=== PATIENT | female | born 1955 | race Caucasian/White ===

== ENCOUNTER → 2017-12-29 13:03 | Outpatient (CLI) | payer OTHER, SELFPAY ==
[2017-12-29 14:37] LABS: INR 2.7 (0.9-1.3); Prothrombin Time 28.6 SECONDS (10.1-12.7)
== END ==
PROVIDERS: Visit Provider Family Medicine
DX: I82.421 Acute embolism and thrombosis of right iliac vein (principal)
CPT/HCPCS: 36415; 85610

== ENCOUNTER → 2018-01-25 11:56 | Outpatient (CLI) | payer OTHER, SELFPAY ==
[2018-01-25 12:37] LABS: INR 3.7 (0.9-1.3); Prothrombin Time 39.7 SECONDS (10.1-12.7)
== END ==
PROVIDERS: PCP Family Medicine; Visit Provider Family Medicine
DX: I82.421 Acute embolism and thrombosis of right iliac vein (principal)
CPT/HCPCS: 36415; 85610

== ENCOUNTER → 2018-01-29 14:01 | Outpatient (CLI) | payer OTHER, SELFPAY ==
--- NOTE | 2018-01-29 14:05 | DI.MG.S_ITS ---
BILATERAL DIGITAL SCREENING MAMMOGRAM 3D/2D WITH CAD: 01/29/2018 CLINICAL: Routine screening. Family history of breast cancer. Comparison is made to exams dated: 12/08/2015 mammogram, 12/02/2015 mammogram, and 07/22/2014 mammogram - Loc[facility]. The tissue of both breasts is heterogeneously dense. This may lower the sensitivity of mammography. Current study was also evaluated with a Computer Aided Detection (CAD) system. There is a 0.6 cm oval equal density asymmetry with an indistinct margin in the left breast anterior depth medial region seen on the craniocaudal view only. There also is an oval equal density asymmetry with an indistinct margin in the left breast middle depth central to the nipple seen on the craniocaudal view only. No other significant masses, calcifications, or other findings are seen in either breast. IMPRESSION: INCOMPLETE: NEEDS ADDITIONAL IMAGING EVALUATION The 0.6 cm oval equal density asymmetry in the left breast anterior depth medial region seen on the craniocaudal view only is indeterminate. Mediolateral and spot compression views as well as additional views with possible ultrasound are recommended. The oval equal density asymmetry in the left breast middle depth central to the nipple seen on the craniocaudal view only is indeterminate. Mediolateral and spot compression views as well as additional views with possible ultrasound are recommended. This exam was interpreted at Station ID: [id number]. NOTE: For mammograms, a report in lay terms will be sent to the patient. Approximately 15% of breast malignancies will not be visualized mammographically. In the management of a palpable breast mass, a negative mammogram must not discourage biopsy of a clinically suspicious lesion. Electronically Signed By: David dobbins/roseline:01/29/2018 17:28:03 letter sent: Additional Imaging Needed ACR BI-RADS Category 0: Incomplete [id number]
== END ==
PROVIDERS: PCP Family Medicine; Visit Provider Family Medicine
DX: Z12.31 Encounter for screening mammogram for malignant neoplasm of breast (principal); Z80.3 Family history of malignant neoplasm of breast
CPT/HCPCS: 77063; 77067

== ENCOUNTER → 2018-02-12 08:56 | Outpatient (CLI) | payer OTHER, SELFPAY ==
--- NOTE | 2018-02-12 | DI.US.S_ITS ---
ULTRASOUND OF LEFT BREAST: 02/12/2018 CLINICAL: Patient returns today to evaluate 2 densities in the left breast. Comparison is made to exams dated: 02/12/2018 mammogram, 01/29/2018 mammogram, 12/02/2015 mammogram, and 07/22/2014 mammogram - [facility]. Color flow ultrasound of the left breast was performed. Isaacs scale images of the real-time examination were reviewed. Prior mammographic finding is no longer seen left breast. There is a 1 cm oval mass in the left breast at 12 o'clock middle depth. IMPRESSION: SUSPICIOUS OF MALIGNANCY - FOLLOW-UP RECOMMENDED The 1 cm oval mass in the left breast is suspicious of malignancy. An ultrasound guided biopsy is recommended. Findings and recommendations discussed with the patient by Dr. Randolph at the time of evaluation. This exam was interpreted at Station ID: [id number]. Electronically Signed By: Marc Linton M.D. cj/:02/13/2018 15:54:11 letter sent: Biopsy Required Ultrasound BI-RADS: 4 Suspicious abnormality
--- NOTE | 2018-02-12 | DI.MG.S_ITS ---
UNILATERAL LEFT DIGITAL DIAGNOSTIC MAMMOGRAM 3D/2D: 02/12/2018 CLINICAL: Additional evaluation requested from prior study. Family history of breast cancer. Comparison is made to exams dated: 01/29/2018 mammogram, 12/08/2015 mammogram, and 12/02/2015 mammogram - [facility]. The tissue of the left breast is heterogeneously dense. This may lower the sensitivity of mammography. Prior mammographic finding is no longer seen in the left breast in the lower inner quadrant. This is consistent with overlapping fibroglandular tissue. There is a 9 mm oval equal density mass with a macrolobulated margin in the left breast at 12 o'clock middle depth. No other significant masses or calcifications are seen in the breast. IMPRESSION: INCOMPLETE: NEEDS ADDITIONAL IMAGING EVALUATION The 9 mm oval equal density mass in the left breast is indeterminate. An ultrasound is recommended. This exam was interpreted at Station ID: [id number]. NOTE: For mammograms, a report in lay terms will be sent to the patient. Approximately 15% of breast malignancies will not be visualized mammographically. In the management of a palpable breast mass, a negative mammogram must not discourage biopsy of a clinically suspicious lesion. Electronically Signed By: Marc Linton M.D. cj/:02/12/2018 15:43:36 ACR BI-RADS Category 0: Incomplete 3340F
== END ==
PROVIDERS: PCP Family Medicine; Visit Provider Family Medicine
DX: R92.8 Other abnormal and inconclusive findings on diagnostic imaging of breast (principal); N63.20 Unspecified lump in the left breast, unspecified quadrant
CPT/HCPCS: 76642; 77065; G0279

== ENCOUNTER → 2018-03-05 07:30 | Outpatient (CLI) | payer OTHER, SELFPAY ==
--- NOTE | 2018-03-05 | PATH_ITS ---
[facility] Accession Number: [id number] . 01 Material submitted: . LEFT BREAST MASS 12:00 . 02 Diagnosis: Left Breast Mass, 12 o'clock, Excisional Biopsy: Fibroadenoma, fragmented. Negative for atypical hyperplasia, in situ or invasive carcinoma. V/03/06/2018 . 02 Comment: Sections are of a fibroepithelial lesion, consistent with a fibroadenoma. There is no increased cellularity, nuclear atypia, stromal overgrowth or necrosis. . As part of routine quality auditor, Dr. Reynaga has reviewed this case and agrees with the above diagnosis. . 02 Electronically signed: . Kalen Mendoza MD, PhD, Pathologist NPI- [id number] . 01 Gross description: . Received one formalin-filled container labeled with the patient's name and labeled US breast NDL core biopsy. The specimen is received with a plastic filter, sample loose in container. The specimen consists of four yellow-dunham, 0.2-0.3 cm in diameter portions of tissue which range in length from 0.7 cm to 1.5 cm. The specimen is entirely submitted in one cassette. Collection date: 03/05/2018. Collection time per container: 8:47 AM. Total fixation time: 12 hours, up to 24. ([id number]) /FRR . 02 Pathologist provided ICD-10: D24.2 . 02 CPT . 817502 Performed at: 01 [facility] [address] [address], [place], [place] [id number] MD David Pederson MD Phone: [phone] Performed at: 02 [facility] [address] [place] [id number] MD Joaquim Desir MD Phone: [phone]
--- NOTE | 2018-03-05 | DI.US.S_ITS ---
ULTRASOUND GUIDED BIOPSY LEFT BREAST USING VACUUM DEVICE WITH MARKING DEVICE INSERTED AND POST DIGITAL MAMMOGRAPHIC AND ULTRASOUND IMAGIN03/05/2018 CLINICAL: Left breast mass. Left breast mass. PATIENT CONSENT: Risks (minor bleeding, infection, vasovagal reaction and repeat procedure), benefits and alternatives were explained to the patient and written informed consent was obtained. Correlation is made to exams dated: 02/12/2018 ultrasound, 02/12/2018 mammogram, and 01/29/2018 mammogram - [facility]. An ultrasound guided biopsy using real-time ultrasound was performed for the 9 mm oval solid mass located in the left breast at 12 o'clock middle depth. The skin was prepped in the usual manner. Local anesthetic was administered to the access site. A skin tomasa was made in the breast. The abnormality was approached from the lateral aspect. A 10 gauge biopsy needle was placed adjacent to the abnormality under ultrasound guidance. Once the needle was documented to be in the correct location, four specimens were obtained using the Mammotome biopsy system. The patient received additional local anesthetic during the procedure. A titanium clip was inserted into the biopsy cavity. Post procedure digital mammographic and ultrasound imaging demonstrates the clip at the targeted area and partial removal of the abnormality. The specimens were sent to the laboratory for pathological analysis. IMPRESSION: ULTRASOUND GUIDED BIOPSY BENIGN Ultrasound guided biopsy of the 9 mm solid mass in the left breast at 12 o'clock middle depth was successful. Findings indicate a fibroadenoma which is benign and concordant. Recommend the patient return to annual screening mammography. This exam was interpreted at Station ID: [id number]. Aleksander vidal,cj/:03/07/2018 23:00:38
--- NOTE | 2018-03-05 | DI.MG.S_ITS ---
UNILATERAL LEFT DIGITAL DIAGNOSTIC MAMMOGRAM POST-NEEDLE BIOPSY: 03/05/2018 CLINICAL: Left breast mass. Post clip placement. Comparison is made to exams dated: 02/12/2018 mammogram, 01/29/2018 mammogram, and 12/08/2015 mammogram - [facility]. The tissue of the left breast is heterogeneously dense. This may lower the sensitivity of mammography. There is a marker clip in the appropriate position in the left breast at 12 o'clock middle depth. This marker clip placement is at biopsy site. IMPRESSION: POST PROCEDURE MAMMOGRAM FOR MARKER PLACEMENT There was a successful marker clip placement in the left breast middle depth. This exam was interpreted at Station ID: [id number]. NOTE: For mammograms, a report in lay terms will be sent to the patient. Approximately 15% of breast malignancies will not be visualized mammographically. In the management of a palpable breast mass, a negative mammogram must not discourage biopsy of a clinically suspicious lesion. Electronically Signed By: Aleksander vidal/:03/05/2018 09:25:52 ACR BI-RADS Category Post-procedure mammogram for marker placement
== END ==
PROVIDERS: PCP Family Medicine; Visit Provider Family Medicine
DX: N63.20 Unspecified lump in the left breast, unspecified quadrant (principal)
CPT/HCPCS: 19083; 77065

== ENCOUNTER → 2018-04-02 12:43 | Outpatient (CLI) | payer OTHER, SELFPAY ==
--- NOTE | 2018-04-02 | DI.CT.S_ITS ---
PROCEDURE: CT ABDOMEN PELVIS WO/W CON INDICATIONS: HEMATURIA TECHNIQUE: After the administration of oral contrast, 5 mm thick sections acquired from the diaphragms to the iliac crests. After the administration of intravenous contrast, 5 mm thick sections acquired from the diaphragms to the symphysis. 5 mm thick coronal and sagittal reformats were acquired. For radiation dose reduction, the following was used: automated exposure control, adjustment of mA and/or kV according to patient size. COMPARISON: None. FINDINGS: Image quality: Excellent. ABDOMEN: Lung bases: Lung bases are clear. Heart size is normal. Solid organs: Liver is normal in size and enhancement. Gallbladder is within normal limits.. Biliary system is non-dilated. Pancreas enhances normally. Spleen is normal in size and enhancement. No adrenal nodules. Bilateral kidneys are normal in size. There is no renal stone or hydronephrosis. No perinephric fluid collection. Mild bilateral perinephric fat stranding is seen. 8 x 9 mm well-circumscribed hypodense structure involving anterior cortex of mid pole left kidney is seen and measures -64 Hounsfield units in density likely represent angiomyolipoma. No new enhancing renal lesion is seen. 7 mm right renal cortical cyst is seen. There is normal contrast excretion bilaterally with normal contrast filling of bilateral ureters. No filling defect or external mass compression is seen. Urinary bladder wall is of normal thickness. No discrete bladder wall mass is seen. Bowel and peritoneum: Stomach, small and large bowel loops are normal in caliber and wall thickness. There is a small hiatal hernia. Appendix is visualized and is within normal limits. No free fluid or air. Nodes and vessels: No retroperitoneal or mesenteric adenopathy by size criteria. Aorta and inferior vena are normal in caliber. Miscellaneous: No ventral hernias. PELVIS: Genitourinary: Bladder wall thickness is normal. Uterus and bilateral adnexa show no gross abnormality. Miscellaneous: No inguinal hernias or adenopathy. Bones: No suspicious bony lesions. No vertebral body compression fractures. Degenerative disc disease in lower lumbar spine is seen. IMPRESSION: 1. Very mild and nonspecific bilateral perinephric fat stranding, infection or inflammation cannot be excluded. No discrete enhancing renal lesion. No hydronephrosis. 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 No gross abnormality is seen in the urinary bladder or bilateral ureters. 2. No acute inflammatory process within the abdomen or pelvis. Dictated by: Neil Joyce M.D. on 04/02/2018 at 15:27 Approved by: Neil Joyce M.D. on 04/02/2018 at 15:42
[2018-04-02 14:04] LABS: Alanine Aminotransferase 19 IU/L (9-52); Albumin 3.9 g/dL (3.5-5.0); Albumin Globulin Ratio 1.2 (1.0-2.8); Alkaline Phosphatase 103 U/L (38-126); Aspartate Aminotransferase 17 IU/L (14-36); BUN Creatinine Ratio 18.6 (6-22); Bilirubin Total 0.4 mg/dL (0.2-1.3); Blood Urea Nitrogen 13 mg/dL (7-17); Calcium 9.3 mg/dL (8.4-10.2); Carbon Dioxide 32 mmol/L (22-32); Chloride 103 mmol/L (98-107); Estimated Glomerular Filt Rate > 60.0 mL/min (>60); Globulin 3.2 g/dL (1.7-4.1); Glucose 66 mg/dL (80-110); HEMOLYSIS < 15 (0-50); Sodium 142 mmol/L (137-145); Total Protein 7.1 g/dL (6.3-8.2)
== END ==
PROVIDERS: PCP Family Medicine; Visit Provider Family Medicine
DX: R31.9 Hematuria, unspecified (principal); N28.1 Cyst of kidney, acquired; D17.71 Benign lipomatous neoplasm of kidney
CPT/HCPCS: 36415; 74178; 80053; Q9967

== ENCOUNTER 2018-04-03 14:00 | Outpatient (RCR) | payer OTHER, SELFPAY ==
--- NOTE | 2017-12-28 16:05 | PT.OTN ---
Current Diagnoses Hemiplegia, unspecified affecting right dominant side (12/26/17) Cerebral infarction due to thrombosis of left middle cerebral artery (12/26/17) Cerebral infarction, unspecified (12/26/17) Difficulty in walking, not elsewhere classified (12/26/17) Weakness (12/26/17) Physical Therapy Treatment Note PT-OP-A Visit Information Start: 12/28/17 15:55 Freq: Status: Active Protocol: Document 12/26/17 13:00 [facility] (Rec: 12/28/17 16:05 [facility] [id number]) Out-Patient Physical Therapy Visit Information Visit Information Visit Type Treatment Note Visit Start Time 13:00 Visit Stop Time 13:45 Total Visit Minutes 45 Number of REACTOR OPERATOR Visits 0 PT-OP-C Subjective Start: 12/28/17 15:55 Freq: Status: Active Protocol: Document 12/26/17 13:00 [facility] (Rec: 12/28/17 16:05 [facility] [id number]) OP-PT Subjective Patient Comments Patient Comments Pt has been walking at the bar daily PT-OP-Q Treatments Start: 12/28/17 15:55 Freq: Status: Active Protocol: Document 12/26/17 13:00 [facility] (Rec: 12/28/17 16:05 [facility] [id number]) Gym Equipment Shuttle Balance 2 Details red clips fwd & side WBOS & NBOS 1 Details blue clips WBOS & NBOS while tossing balloon Therapeutic Exercises Standing Exercises 2 Standing Exercise Name sit <>stand Reps/Minutes 10 1 Standing Exercise Name hip ext Side bilateral Gait Training Gait Activity 3 Description fwd/back walking Device Used rail Distance/Duration 2x20 ft 2 Description side steps Device Used rail Distance/Duration 2x20 ft 1 Description Gait Device Used hemiwalker Level of Assistance CGA Surface level Distance/Duration between activities & 100ft Treatment Focus step through gait Neuro Re-Education Treatment Balance Activities 1 Details balance board Comments fwd/back & side to side weight shifts Self-Care/Home Management Treatment Education Other Education edu to use LE to lift itself off w/c footrest and to use LE strength as much as she can. PT-OP-T Assessment and Plan Start: 12/28/17 15:55 Freq: Status: Active Protocol: Document 12/26/17 13:00 [facility] (Rec: 12/28/17 16:05 [facility] [email or web address]) Physical Therapy Assessment Assessment Summary Assessment pt is improving with steadiness in standing. She has difficulty with uneven surfaces d/t RLE weakness, but is improving with step pattern & ability to clear RLE when amb. Physical Therapy Plan Frequency and Duration Frequency of Treatment Every Other Week Plan of Care End Date 02/09/18 Next Visit Focus/Plan Next Visit Plan hurdles
--- NOTE | 2018-01-17 16:02 | PT.OTN ---
Current Diagnoses Hemiplegia, unspecified affecting right dominant side (01/17/18) Cerebral infarction due to thrombosis of left middle cerebral artery (01/17/18) Cerebral infarction, unspecified (01/17/18) Difficulty in walking, not elsewhere classified (01/17/18) Weakness (01/17/18) Physical Therapy Treatment Note PT-OP-A Visit Information Start: 12/28/17 15:55 Freq: Status: Active Protocol: Document 01/17/18 15:15 [facility] (Rec: 01/17/18 16:02 [facility] [id number]) Out-Patient Physical Therapy Visit Information Visit Information Visit Type Treatment Note Visit Start Time 15:15 Visit Stop Time 16:00 Total Visit Minutes 45 Number of HARDWARE ASSEMBLER Visits 0 PT-OP-C Subjective Start: 12/28/17 15:55 Freq: Status: Active Protocol: Document 12/26/17 13:00 [facility] (Rec: 12/28/17 16:05 [facility] [email or web address]) OP-PT Subjective Patient Comments Patient Comments Pt has been walking at the bar daily PT-OP-Q Treatments Start: 12/28/17 15:55 Freq: Status: Active Protocol: Document 01/17/18 15:15 [facility] (Rec: 01/17/18 16:02 [facility] [id number]) Gym Equipment Shuttle Balance 2 Details red clips fwd & side WBOS & NBOS Therapeutic Exercises Standing Exercises 3 Standing Exercise Name marching in place Reps/Minutes 10 1 Standing Exercise Name hip ext Side bilateral Gait Training Gait Activity 3 Description fwd/back walking Device Used rail Distance/Duration 2x20 ft 2 Description side steps Device Used rail Distance/Duration 2x20 ft 1 Description Gait Device Used hemiwalker Level of Assistance CGA Surface level Distance/Duration between activities & 100ft Treatment Focus step through gait Neuro Re-Education Treatment Balance Activities 3 Details marching fwd 2 Details tandem stance trials B 1 Details balance board Comments fwd/back & side to side weight shifts PT-OP-T Assessment and Plan Start: 12/28/17 15:55 Freq: Status: Active Protocol: Document 01/17/18 15:15 [facility] (Rec: 01/17/18 16:02 [facility] [id number]) Physical Therapy Assessment Assessment Summary Assessment Pt cont to have difficulty on uneven surfaces. She occasionally requires min A to catch balance with hemiwalker . Improving static stance. Physical Therapy Plan Frequency and Duration Frequency of Treatment Every Other Week Plan of Care End Date 02/09/18 Next Visit Focus/Plan Next Note Type Progress Note Next Visit Plan Advance balance Please Sign and Return: I have reviewed this Plan of Care and certify that the skilled therapy services above are required to meet the patient?s needs. Physician Signature Date Printed Name and Credentials Clinical Instructor Signature Printed Name and Credentials
--- NOTE | 2018-02-16 15:50 | PT.OTN ---
Current Diagnoses Hemiplegia, unspecified affecting right dominant side (02/16/18) Cerebral infarction due to thrombosis of left middle cerebral artery (02/16/18) Cerebral infarction, unspecified (02/16/18) Difficulty in walking, not elsewhere classified (02/16/18) Weakness (02/16/18) Physical Therapy Treatment Note PT-OP-A Visit Information Start: 12/28/17 15:55 Freq: Status: Active Protocol: Document 02/16/18 15:25 [facility] (Rec: 02/16/18 15:50 [facility] [id number]) Out-Patient Physical Therapy Visit Information Visit Information Visit Type Progress Note Visit Start Time 12:15 Visit Stop Time 13:00 Total Visit Minutes 45 Number of NOVELTY TWISTER OPERATOR Visits 0 PT-OP-C Subjective Start: 12/28/17 15:55 Freq: Status: Active Protocol: Document 02/16/18 15:25 [facility] (Rec: 02/16/18 15:50 [facility] [id number]) OP-PT Subjective Patient Comments Patient Comments Reports noncompliance with chair exercsies. Per her boyfriend, her brother takes her out to the bar a few times a week to walk. PT-OP-Q Treatments Start: 12/28/17 15:55 Freq: Status: Active Protocol: Document 02/16/18 15:25 [facility] (Rec: 02/16/18 15:50 [facility] [id number]) Therapeutic Exercises Sitting Exercises 6 Sitting Exercise Name DF Reps/Minutes 10 5 Sitting Exercise Name knee flex Reps/Minutes 5 4 Sitting Exercise Name march Reps/Minutes 10 3 Sitting Exercise Name LAQ Reps/Minutes 10 Comments available range 2 Sitting Exercise Name hip add Equipment Used pillow Reps/Minutes 15 1 Sitting Exercise Name hip abd Resistance L3 Reps/Minutes 15 Standing Exercises 3 Standing Exercise Name marching in place Reps/Minutes 10 2 Standing Exercise Name sit <>stand Reps/Minutes 6 1 Standing Exercise Name hip abd Side bilateral Gait Training Gait Activity 3 Description fwd/back walking Device Used rail Distance/Duration 2x20 ft 2 Description side steps Device Used rail Distance/Duration 2x20 ft 1 Description Gait Device Used NBQC Level of Assistance CGA Surface level Distance/Duration 200ft Treatment Focus step through gait Neuro Re-Education Treatment Balance Activities 2 Details tandem stance trials B Self-Care/Home Management Treatment Education Other Education edu to use LE to lift itself off w/c footrest and to use LE strength as much as she can; discussed pt walking with family to/from meals & not using her power chair at all times d/t pt geting weaker. Pt educated to do HEP in chair daily & encouraged BF to walk with her more. PT-OP-T Assessment and Plan Start: 12/28/17 15:55 Freq: Status: Active Protocol: Document 02/16/18 15:25 [facility] (Rec: 02/16/18 15:50 [facility] [id number]) Physical Therapy Assessment Goals Two Impairment gait Grinding Machine Operator Goal (LTG) Amb 100ft with hemiwalker or quad cane Indep LTG Duration 04/19/18 One Impairment strength Short Term Goal (STG) indep HEP STG Duration Pt given HEP-noncompliance 03/19 Progress Towards Goals Progress Towards Goals Slow Progress - Other Progress Comments Pt has been noncompliant with seated HEP, but compliant with walking at bar with brother a few times a week. Pt is progressing with balance, but demonstrated dec endurance today with activity, possibly d/t inc use of power chair. Assessment Summary Assessment Pt able to go through HEP with cueing throughout exercsies. Cont need to work on balance. Physical Therapy Plan Frequency and Duration Frequency of Treatment Every Other Week Duration of Treatment 2 months Plan of Care Start Date 02/16/18 Plan of Care End Date 04/19/18 Therapeutic Interventions Therapeutic Interventions Aquatic Therapy Balance Training Gait Training Home Exercise Program Manual Therapy Neuromuscular Re-education Taping Therapeutic Exercises Next Visit Focus/Plan Next Note Type Treatment Note Next Visit Plan Resume advancing balance tasks ; review HEP for compliance
--- NOTE | 2018-02-16 15:50 | PT.OPPOC ---
Current Diagnoses Hemiplegia, unspecified affecting right dominant side (02/16/18) Cerebral infarction due to thrombosis of left middle cerebral artery (02/16/18) Cerebral infarction, unspecified (02/16/18) Difficulty in walking, not elsewhere classified (02/16/18) Weakness (02/16/18) Provider Visit Care Team Role Provider Type Prince Anthony MD Attending Provider Non-Staff Specialty: [facility] Address: [address] [place] [address], [id number] Email: Plan Of Care PT-OP-T Assessment and Plan Start: 12/28/17 15:55 Freq: Status: Active Protocol: Document 02/16/18 15:25 [facility] (Rec: 02/16/18 15:50 [facility] [id number]) Physical Therapy Assessment Goals Two Impairment gait Care Home Goal (LTG) Amb 100ft with hemiwalker or quad cane Indep LTG Duration 04/19/18 One Impairment strength Short Term Goal (STG) indep HEP STG Duration Pt given HEP-noncompliance 03/19 Progress Towards Goals Progress Towards Goals Slow Progress - Other Progress Comments Pt has been noncompliant with seated HEP, but compliant with walking at bar with brother a few times a week. Pt is progressing with balance, but demonstrated dec endurance today with activity, possibly d/t inc use of power chair. Assessment Summary Assessment Pt able to go through HEP with cueing throughout exercsies. Cont need to work on balance. Physical Therapy Plan Frequency and Duration Frequency of Treatment Every Other Week Duration of Treatment 2 months Plan of Care Start Date 02/16/18 Plan of Care End Date 04/19/18 Therapeutic Interventions Therapeutic Interventions Aquatic Therapy Balance Training Gait Training Home Exercise Program Manual Therapy Neuromuscular Re-education Taping Therapeutic Exercises Next Visit Focus/Plan Next Note Type Treatment Note Next Visit Plan Resume advancing balance tasks ; review HEP for compliance Plan of Care Dates Plan of Care Start Date 02/16/18 Plan of Care End Date 04/19/18 Please Sign and Return: I have reviewed this Plan of Care and certify that the skilled therapy services above are required to meet the patient?s needs. Physician Signature Date Printed Name and Credentials Clinical Instructor Signature Printed Name and Credentials
--- NOTE | 2018-04-03 15:44 | PT.OTN ---
Current Diagnoses Hemiplegia, unspecified affecting right dominant side (04/03/18) Cerebral infarction due to thrombosis of left middle cerebral artery (04/03/18) Cerebral infarction, unspecified (04/03/18) Difficulty in walking, not elsewhere classified (04/03/18) Weakness (04/03/18) Physical Therapy Treatment Note PT-OP-A Visit Information Start: 12/28/17 15:55 Freq: Status: Active Protocol: Document 04/03/18 15:40 [facility] (Rec: 04/03/18 15:44 [facility] [id number]) Out-Patient Physical Therapy Visit Information Visit Information Visit Type Treatment Note Visit Note Patient seen for fitting for power wheelchair. Please see documentation in her paper chart. Visit Start Time 14:00 Visit Stop Time 14:37 Total Visit Minutes 37
--- NOTE | 2018-04-12 16:22 | PT.OPDS ---
Current Diagnoses Hemiplegia, unspecified affecting right dominant side (04/03/18) Cerebral infarction due to thrombosis of left middle cerebral artery (04/03/18) Cerebral infarction, unspecified (04/03/18) Difficulty in walking, not elsewhere classified (04/03/18) Weakness (04/03/18) Provider Visit Care Team Role Provider Type Prince Anthony MD Attending Provider Non-Staff Specialty: [facility] Practice Address: [address] [place] [address], [id number] Email: Discharge Summary PT-OP-C Subjective Start: 12/28/17 15:55 Freq: Status: Active Protocol: Document 02/16/18 15:25 [facility] (Rec: 02/16/18 15:50 [facility] [email or web address]) OP-PT Subjective Patient Comments Patient Comments Reports noncompliance with chair exercsies. Per her boyfriend, her brother takes her out to the bar a few times a week to walk. PT-OP-T Assessment and Plan Start: 12/28/17 15:55 Freq: Status: Active Protocol: Document 04/12/18 16:21 [facility] (Rec: 04/12/18 16:22 [facility] [id number]) Physical Therapy Plan Discharge Physical Therapy Discharge Reasons Patient Request Discharge Comments Pt and family are choosing to end PT at this time d/t pt using up insurance authorized visits. Pt has HEP for home and pt and family have been educated with it.
== END 2018-05-25 10:38 ==
LOC: PHYS 14:00
PROVIDERS: Visit Provider Family Medicine
DX: I63.312 Cerebral infarction due to thrombosis of left middle cerebral artery (principal); I63.9 Cerebral infarction, unspecified; G81.91 Hemiplegia, unspecified affecting right dominant side; R26.2 Difficulty in walking, not elsewhere classified; R53.1 Weakness
CPT/HCPCS: 97110; 97112; 97116; 97535; 97542

== ENCOUNTER → 2018-04-09 16:44 | Outpatient (REF) | payer OTHER, SELFPAY ==
[2018-04-09 16:50] LABS: Add Manual Diff / Slide Review NO; Basophils Percent Auto 0.3 % (0-2); Eosinophils Percent Auto 2.2 % (2-4); Hematocrit 35.5 % (36-46); Hemoglobin 11.9 g/dL (12.0-16.0); Lymphocytes Percent Auto 9.3 % (25-40); Mean Corpuscular HGB Conc 33.4 % (30-36); Mean Corpuscular Hemoglobin 31.7 PG (26-34); Mean Corpuscular Volume 94.8 fL (80-100); Monocytes Percent Auto 5.5 % (3-14); Neutrophils Absolute Auto 4700 /uL (3000-5900); Neutrophils Percent Auto 82.7 % (50-75); Platelet Count 274 X10^3/uL (150-400); Red Blood Cell Count 3.75 X10^6/uL (4.0-5.2); Red Cell Distribution Width 13.5 % (11.6-14.8); White Blood Cell Count 5.7 X10^3/uL (4.5-11.0)
[2018-04-09 17:07] LABS: Prothrombin Time 170.1 SECONDS (10.1-12.7)
[2018-04-09 17:21] LABS: INR 14.9 (0.9-1.3)
== END ==
LOC: LAB 16:44
PROVIDERS: PCP Family Medicine; Visit Provider Nurse Practitioner Family
DX: R31.0 Gross hematuria (principal)
CPT/HCPCS: 85025; 85610

== ENCOUNTER 2018-04-09 20:10 | Emergency (ER) | payer OTHER, SELFPAY ==
[2018-04-09 20:24] VITALS: BP 107/84; PULSE 63; RESP 20; TEMP 36.4; O2SAT 95; BMI 29.1
[2018-04-09] MEDS: PHYTONADIONE (VIT K1) 5 MG TABLET PO (20:49)
[2018-04-09 21:45] VITALS: BP 91/51; PULSE 57; RESP 17; O2SAT 97
--- NOTE | 2018-04-09 21:56 | ED_ITS ---
HPI - General Adult <TAY Kowalski - Last Filed: 04/09/18 22:26> General Chief complaint: Urogenital-Female Stated complaint: INR IS HIGH Time Seen by Provider: 04/09/18 20:16 Source: family Mode of arrival: wheelchair Limitations: physical limitation History of Present Illness HPI narrative: A 62-year-old female with prior history of CVA nonsmoker here for complaint of having blood in her urine and having elevated INR. She takes Coumadin secondary to the CVA. She was seen by primary care provider last week due to having bladder urine was treated for urinary tract infection. Today she was still having blood in her urine her INR was checked and resulted as 14.9 no other sources of bleeding. reports that she has had no changes in her diet. is primary historian. She denies any pain Related Data Allergies Allergy/AdvReac Type Severity Reaction Status Date / Time No Known Drug Allergies Allergy Unknown Unverified 11/22/17 12:23 [NO KNOWN DRUG ALLERGIES] Review of Systems <TAY Kowalski - Last Filed: 04/09/18 22:26> Constitutional Denies chills, Denies fatigue, Denies fever(s), Denies lethargy and Denies weakness Eyes Denies change in vision, Denies eye discharge, Denies irritation and Denies loss of vision ENT Ears, Nose, Mouth, and Throat: Denies change in voice, Denies neck pain and Denies sore throat Cardiovascular Denies dyspnea and Denies dyspnea on exertion Respiratory Denies cough, Denies dyspnea, Denies dyspnea on exertion and Denies wheezing Gastrointestinal Gastrointestinal: Denies abdominal pain, Denies change in bowel habits, Denies diarrhea, Denies nausea and Denies vomiting Genitourinary Comments: Blood in urine with elevated INR Musculoskeletal Denies neck pain Integumentary/Breasts Denies pruritus, Denies erythema, Denies rash and Denies wounds Neurologic Denies confusion, Denies loss of vision and Denies weakness Psychiatric Denies anxiety, Denies confusion, Denies depression, Denies homicidal ideation and Denies suicidal ideation Endocrine Denies fatigue and Denies flushing Hematologic/Lymphatic Denies easy bruising Allergic/Immunologic Denies wheezing Exam <TAY Kowalski - Last Filed: 04/09/18 22:26> Initial Vital Signs Initial Vital Signs: Vital Signs Temperature 97.5 F L 04/09/18 20:24 Pulse Rate 63 04/09/18 20:24 Respiratory Rate 20 04/09/18 20:24 Blood Pressure 107/84 H 04/09/18 20:24 Pulse Oximetry 95 04/09/18 20:24 Const General: cooperative and well developed Nutritional Appearance: well nourished Orientation: alert, awake and confused Limitations: physical limitations [facility] Head: normocephalic and atraumatic Mouth: oral mucosae normal, oropharynx normal and moist mucous membranes Teeth and gingiva: dentition normal Eyes Conjunctivae: conjunctivae normal Sclera: sclerae normal Pupils: PERRL EOM: EOM intact bilaterally Resp Effort & Inspection: normal respiratory effort, able to speak in complete sentences, no respiratory distress and no use of accessory muscles Auscultation: clear to auscultation bilaterally, no rales, no rhonchi and no wheezes Cardio Rate: regular rate Rhythm: regular rhythm Heart Sounds: no click, no gallops, no murmurs and no rubs Pulses: normal peripheral pulses GI Inspection: non-distended Palpation: soft, no hepatosplenomegaly, No guarding, No pulsatile mass and No tender Auscultation: normal bowel sounds General: No CVA tenderness Skin General: no rashes or lesions noted, No jaundice and No petechiae Neuro General: alert, awake and no focal motor deficits Extrem General: full ROM, no clubbing, cyanosis or edema, no pedal edema and no calf tenderness <Darwin Osborne DO - Last Filed: 04/10/18 02:23> Initial Vital Signs Initial Vital Signs: Vital Signs Temperature 97.5 F L 04/09/18 20:24 Pulse Rate 63 04/09/18 20:24 Respiratory Rate 20 04/09/18 20:24 Blood Pressure 107/84 H 04/09/18 20:24 Pulse Oximetry 95 04/09/18 20:24 Course <TAY Kowalski - Last Filed: 04/09/18 22:26> Orders Ordered: ED Orders 04/09/18 21:40 Urinalysis and Microscopic Stat 04/09/18 21:50 Complete Blood Count AUTO DIFF Stat Discontinued Medications Phytonadione (Mephyton) 5 mg PO NOW ONE Stop: 04/09/18 20:25 Last Admin: 04/09/18 20:49 Dose: 5 mg Vital Signs - 8 hr 04/09/18 20:24 04/09/18 21:45 04/09/18 22:25 Temperature 97.5 F L Pulse Rate 63 57 L 57 L Respiratory Rate 20 17 16 Blood Pressure 107/84 H Blood Pressure [Left Arm] 91/51 L 98/62 Pulse Oximetry 95 97 95 <Darwin Osborne DO - Last Filed: 04/10/18 02:23> Orders Ordered: ED Orders 04/09/18 21:40 Urinalysis and Microscopic Stat 04/09/18 21:50 Complete Blood Count AUTO DIFF Stat Discontinued Medications Phytonadione (Mephyton) 5 mg PO NOW ONE Stop: 04/09/18 20:25 Last Admin: 04/09/18 20:49 Dose: 5 mg Vital Signs - 8 hr 04/09/18 20:24 04/09/18 21:45 04/09/18 22:25 Temperature 97.5 F L Pulse Rate 63 57 L 57 L Respiratory Rate 20 17 16 Blood Pressure 107/84 H Blood Pressure [Left Arm] 91/51 L 98/62 Pulse Oximetry 95 97 95 Medical Decision Making <TAY Kowalski - Last Filed: 04/09/18 22:26> MDM Narrative Medical decision making narrative: Patient was given p.o. vitamin K in the emergency room. Her H&H earlier this afternoon was 11.9 and 35.5. Repeat H&H was obtained. And was 11.3 and 33.2. Patient is not having any adverse symptoms at this time. H&H was lower however was not significantly lower. Discussed case with who feels the patient is safe to go home. Will have patient follow up with primary care provider tomorrow for recheck of INR or the next day, do not take Coumadin for the next 2 days. For any worsening is problems or bleeding return to the emergency room. Lab Data Result diagrams: 04/09/18 21:50 Lab Results 04/09/18 04/09/18 04/09/18 Range/Units 21:40 21:50 21:50 WBC 5.6 (4.5-11.0) X10^3/uL RBC 3.53 L (4.0-5.2) X10^6/uL Hgb Cancelled 11.3 L Hct Cancelled 33.2 L MCV 93.9 (80-100) fL MCH 31.9 (26-34) PG MCHC 34.0 (30-36) % RDW 13.5 (11.6-14.8) % Plt Count 262 (150-400) X10^3/uL Neut % (Auto) 83.4 H (50-75) % Lymph % (Auto) 9.9 L (25-40) % [place] % (Auto) 5.4 (3-14) % Eos % (Auto) 1.1 L (2-4) % Baso % (Auto) 0.2 (0-2) % Neut # (Auto) 4600 (3147-4507) /uL Urine Color Red Urine Appearance Turbid Urine pH 6.5 (4.5-8.0) Ur Specific [place] 1.020 (1.000-1.035) Urine Protein 3+ H (Negative) Urine Glucose (UA) Trace (Normal) g/dL Urine Ketones Negative (NEGATIVE) Urine Occult Blood 3+ H (Negative) Urine Nitrate Negative (Negative) Urine Bilirubin Negative (NEGATIVE) Urine Urobilinogen 0.2 (0.2) E.U./dL Ur Leukocyte Esterase Negative (NEGATIVE) Urine RBC >100/hpf H (0-5/HPF) Urine WBC 1-5/hpf (0-5/HPF) Ur Squamous Epith Cells 0-1 /hpf Urine Bacteria Occasional (0-1) (None) Ur Culture Indicated? Cult not indicated Micro UA Comment Gross blood <Darwin Osborne, DO - Last Filed: 04/10/18 02:23> Lab Data Lab Results 04/09/18 04/09/18 04/09/18 Range/Units 21:40 21:50 21:50 WBC 5.6 (4.5-11.0) X10^3/uL RBC 3.53 L (4.0-5.2) X10^6/uL Hgb Cancelled 11.3 L Hct Cancelled 33.2 L MCV 93.9 (80-100) fL MCH 31.9 (26-34) PG MCHC 34.0 (30-36) % RDW 13.5 (11.6-14.8) % Plt Count 262 (150-400) X10^3/uL Neut % (Auto) 83.4 H (50-75) % Lymph % (Auto) 9.9 L (25-40) % [place] % (Auto) 5.4 (3-14) % Eos % (Auto) 1.1 L (2-4) % Baso % (Auto) 0.2 (0-2) % Neut # (Auto) 4600 (2932-8376) /uL Urine Color Red Urine Appearance Turbid Urine pH 6.5 (4.5-8.0) Ur Specific [place] 1.020 (1.000-1.035) Urine Protein 3+ H (Negative) Urine Glucose (UA) Trace (Normal) g/dL Urine Ketones Negative (NEGATIVE) Urine Occult Blood 3+ H (Negative) Urine Nitrate Negative (Negative) Urine Bilirubin Negative (NEGATIVE) Urine Urobilinogen 0.2 (0.2) E.U./dL Ur Leukocyte Esterase Negative (NEGATIVE) Urine RBC >100/hpf H (0-5/HPF) Urine WBC 1-5/hpf (0-5/HPF) Ur Squamous Epith Cells 0-1 /hpf Urine Bacteria Occasional (0-1) (None) Ur Culture Indicated? Cult not indicated Micro UA Comment Gross blood Discharge Plan Departure Patient Disposition: Home Clinical Impression: Elevated INR Discharge Date/Time: 04/09/18 22:30 Interventions: ED Discharge Assessment Last Done: 04/09/18 22:29 Instructions: Warfarin Activity Restrictions/Additional Instructions: Her lab values today show mild anemia. Her INR was elevated to 14.9. She was given vitamin K orally in the emergency room to lower her INR. Do not give warfarin for the next couple of days. Follow up with primary care provider tomorrow or the next day for redraw of INR and recheck of her CBC. For any worsening symptoms return to the emergency room. Referrals: Laith White MD [Primary Care Provider] - <Darwin Osborne DO - Last Filed: 04/10/18 02:23> Cosign ED Attending Medature Attestation: I was immediately available in the department for consultation. Documentation has been reviewed. I agree with assessment and plan.
[2018-04-09 22:04] LABS: Add Manual Diff / Slide Review NO; Basophils Percent Auto 0.2 % (0-2); Eosinophils Percent Auto 1.1 % (2-4); Hematocrit 33.2 % (36-46); Hemoglobin 11.3 g/dL (12.0-16.0); Lymphocytes Percent Auto 9.9 % (25-40); Mean Corpuscular Hemoglobin 31.9 PG (26-34); Mean Corpuscular Volume 93.9 fL (80-100); Monocytes Percent Auto 5.4 % (3-14); Neutrophils Absolute Auto 4600 /uL (3000-5900); Neutrophils Percent Auto 83.4 % (50-75); Platelet Count 262 X10^3/uL (150-400); Red Blood Cell Count 3.53 X10^6/uL (4.0-5.2); Red Cell Distribution Width 13.5 % (11.6-14.8); White Blood Cell Count 5.6 X10^3/uL (4.5-11.0)
[2018-04-09 22:07] LABS: Appearance Urine UA TURBID; Bilirubin Urine UA NEGATIVE (NEGATIVE); Color Urine UA RED; Glucose Urine UA TRACE g/dL (Normal); Ketones Urine UA NEGATIVE (NEGATIVE); Leukocyte Esterase Urine UA NEGATIVE (NEGATIVE); Nitrite Urine UA Negative (Negative); Occult Blood Urine UA 3+ (Negative); Protein Urine UA 3+ (Negative); Urobilinogen Urine UA 0.2 E.U./dL (0.2); pH Urine UA 6.5 (4.5-8.0)
[2018-04-09 22:08] LABS: Bacteria Urine Occasional (0-1); Culture Indicated Urine Cult Not Indicated; RBC Urine >100/HPF (0-5/HPF); Squamous Epithelial Cell Urine 0-1 /HPF; Urine Comments GROSS BLOOD; WBC Urine 1-5/HPF (0-5/HPF)
[2018-04-09 22:25] VITALS: BP 98/62; PULSE 57; RESP 16; O2SAT 95
== END 2018-04-09 22:30 | disposition home or self-care (01) ==
PROVIDERS: Emergency Provider Nurse Practitioner Family; PCP Family Medicine
DX: R79.1 Abnormal coagulation profile (principal)
CPT/HCPCS: 81001; 85025; 85610; 99283

== ENCOUNTER → 2018-04-11 14:37 | Outpatient (REF) | payer OTHER, SELFPAY ==
[2018-04-11 14:50] LABS: INR 2.9 (0.9-1.3); Prothrombin Time 31.8 SECONDS (10.1-12.7)
== END ==
LOC: LAB 14:37
PROVIDERS: PCP Family Medicine; Visit Provider Nurse Practitioner Family
DX: Z79.01 Long term (current) use of anticoagulants (principal)
CPT/HCPCS: 85610

== ENCOUNTER 2018-04-11 23:47 | Emergency (ER) | payer OTHER, SELFPAY ==
--- NOTE | 2018-04-12 00:01 | ED.ABDPAIN ---
HPI - Abdominal Pain General Chief Complaint: Extremity Problem,Nontraumatic Stated Complaint: vomiting right side pain all over Time Seen by Provider: 04/11/18 23:59 Source: family Mode of arrival: wheelchair Limitations: physical limitation History of Present Illness HPI narrative: 62-year-old female with history of cerebrovascular incident and right-sided deficits presents with her in the chief complaint of right-sided pain. She denies any injury or history of the same. She did have 1 episode of vomitingJust prior to arrival. She was seen a few days ago with a chief complaint of elevated INR in the setting of Coumadin and after thorough evaluation was able to go Onset (ago): hour(s) Pain Consistency: constant Location: RUQ and RLQ Severity: moderate Severity scale (1-10): 6 Quality: stabbing Radiation: RUQ and RLQ Exacerbating factors: nothing Associated symptoms: nausea and vomiting Related Data Previous Rx's Medication Instructions Recorded hydrocodone-acetaminophen 1 tab PO Q4-6H PRN #14 tab 04/12/18 ondansetron [Zofran ODT] 4 mg PO Q6H PRN #14 tab 04/12/18 Allergies Allergy/AdvReac Type Severity Reaction Status Date / Time No Known Drug Allergies Allergy Unknown Unverified 11/22/17 12:23 [NO KNOWN DRUG ALLERGIES] Review of Systems Review of Systems All systems reviewed & are unremarkable except as noted in HPI and below and unobtainable due to mental condition Constitutional Denies chills, Denies fever(s), Denies lethargy and Denies weakness Eyes Denies change in vision, Denies eye discharge, Denies irritation and Denies loss of vision ENT Ears, Nose, Mouth, and Throat: Denies change in voice, Denies neck pain and Denies sore throat Cardiovascular Denies chest pain, Denies irregular heart rhythm, Denies lightheadedness, Denies palpitations, Denies dyspnea, Denies dyspnea on exertion and Denies orthopnea Respiratory Denies cough, Denies dyspnea, Denies dyspnea on exertion and Denies wheezing Gastrointestinal Gastrointestinal: Denies abdominal pain, Denies change in bowel habits, Denies diarrhea, Denies nausea and Denies vomiting Genitourinary Denies hematuria, Denies flank pain, Denies urinary incontinence and Denies urinary urgency Musculoskeletal Denies neck pain Integumentary/Breasts Denies pruritus, Denies erythema, Denies rash and Denies wounds Neurologic Denies confusion, Denies loss of vision and Denies weakness Psychiatric Denies anxiety, Denies confusion, Denies depression, Denies homicidal ideation and Denies suicidal ideation Endocrine Denies palpitations Hematologic/Lymphatic Denies easy bruising Allergic/Immunologic Denies wheezing [facility] Social History Smoking Status: Never smoker Exam Narrative Exam Narrative: 62-year-old stroke patient with obvious right-sided deficit Initial Vital Signs Initial Vital Signs: Vital Signs Pulse Rate 48 L 04/12/18 00:03 Respiratory Rate 18 04/12/18 00:03 Blood Pressure 164/83 H 04/12/18 00:03 Pulse Oximetry 97 04/12/18 00:03 Const General: cooperative Nutritional Appearance: well nourished Orientation: alert and awake Eyes General: appearance normal, both eyes and all related structures Eyelids: eyelids normal Conjunctivae: conjunctivae normal Sclera: sclerae normal Pupils: PERRL EOM: EOM intact bilaterally Neck Neck: normal visual inspection, trachea midline, No lymphadenopathy, No midline deformity and No JVD Lymphatic: No lymphedema Resp Effort & Inspection: normal respiratory effort, able to speak in complete sentences, no respiratory distress and no use of accessory muscles Auscultation: clear to auscultation bilaterally, no rales, no rhonchi and no wheezes GI Inspection: non-distended Palpation: soft, no hepatosplenomegaly, No guarding, No pulsatile mass and No tender Auscultation: normal bowel sounds Skin General: no rashes or lesions noted, No jaundice and No petechiae Neuro General: awake Cognition: normal cognition Course Orders Ordered: ED Orders 04/12/18 00:10 Basic Metabolic Panel Stat Complete Blood Count AUTO DIFF Stat Prothrombin Time INR Stat 04/12/18 00:14 CT head/brain wo con Stat 04/12/18 01:41 XR acute abdomen series Stat Discontinued Medications Hydrocodone Bitart/Acetaminophen (Vicodin Prepack) 1 bottle MISC SEEINSTR ONE Stop: 04/12/18 02:40 Last Admin: 04/12/18 03:03 Dose: 1 bottle Hydromorphone HCl (Dilaudid) 1 mg IV NOW ONE Stop: 04/12/18 01:35 Last Admin: 04/12/18 01:35 Dose: 1 mg Ondansetron HCl (Zofran) 4 mg IV NOW ONE Stop: 04/12/18 02:14 Last Admin: 04/12/18 02:15 Dose: 4 mg Ondansetron HCl (Zofran Odt Prepack) 1 bottle MISC SEEINSTR ONE Stop: 04/12/18 02:40 Last Admin: 04/12/18 03:03 Dose: 1 bottle Vital Signs - 8 hr 04/12/18 00:03 04/12/18 01:02 04/12/18 01:30 Pulse Rate 48 L 51 L 47 L Respiratory Rate 18 20 Blood Pressure 164/83 H Blood Pressure [Left Arm] 179/85 H 175/83 H Pulse Oximetry 97 100 98 04/12/18 02:21 Pulse Rate 54 L Respiratory Rate 16 Blood Pressure Blood Pressure [Left Arm] 169/81 H Pulse Oximetry 99 MDM - Abdominal Pain Medical Records Attestation: I reviewed the patient's medical records. Lab Data Attestation: I reviewed the patient's lab results. Result diagrams: 04/12/18 00:10 04/12/18 00:10 Lab Results 04/12/18 04/12/18 04/12/18 Range/Units 00:10 00:10 00:10 WBC 6.9 (4.5-11.0) X10^3/uL RBC 3.42 L (4.0-5.2) X10^6/uL Hgb 11.0 L (12.0-16.0) g/dL Hct 32.4 L (36-46) % MCV 94.8 (80-100) fL MCH 32.2 (26-34) PG MCHC 34.0 (30-36) % RDW 13.4 (11.6-14.8) % Plt Count 284 (150-400) X10^3/uL Neut % (Auto) 82.8 H (50-75) % Lymph % (Auto) 8.1 L (25-40) % [place] % (Auto) 8.7 (3-14) % Eos % (Auto) 0.1 L (2-4) % Baso % (Auto) 0.3 (0-2) % Neut # (Auto) 5700 (6409-3066) /uL PT 32.2 H (10.1-12.7) SECONDS INR 2.9 H (0.9-1.3) Sodium 140 (137-145) mmol/L Potassium 4.4 (3.4-5.1) mmol/L Chloride 102 (98-107) mmol/L Carbon Dioxide 27 (22-32) mmol/L BUN 14 (7-17) mg/dL Creatinine 0.90 (0.52-1.04) mg/dL Estimated GFR > 60.0 (>60) mL/min BUN/Creatinine Ratio 15.6 (6-22) Glucose 130 H (80-110) mg/dL Calcium 9.4 (8.4-10.2) mg/dL Point of care testing: Urine Dip Bedside Urine Glucose Negative Bedside Urine Bilirubin - Negative Bedside Urine Ketone - Negative Urine Specific [place] 1.010 Bedside Urine Occult Blood - Negative Bedside Urine pH 8.5 Bedside Urine Protein + 30 Bedside Urine Urobilinogen - Negative Bedside Urine Nitrite - Negative Bedside Urine Leukocytes - Negative Esterase Imaging Data CT scan - head: Radiologist's impression: No intracranial hemorrhage. Large old infarct in the distribution of the left middle cerebral artery which is acutely seen on December 26, 2016 Abdominal x-ray: My impression: NURY Radiologist's impression: [facility] Discharge Plan Departure Patient Disposition: Home Clinical Impression: Pain, Abdominal pain Instructions: DI for Abdominal Pain-Adult Activity Restrictions/Additional Instructions: *You have been diagnosed with [ acute abdominal pain ] *What to do: *Take medications as directed *Follow up with your primary care provider in 2-3 days, call for an appointment. Let them know you were seen in the Emergency Department and that we ask that you be seen in follow up *Return to ER if you should have any new, worsening or concerning symptoms Prescriptions: New hydrocodone-acetaminophen 5-325 mg tablet 1 tab PO Q4-6H PRN (Reason: pain) Qty: 14 RF: 0 ondansetron [Zofran ODT] 4 mg tablet,disintegrating 4 mg PO Q6H PRN (Reason: nausea and vomiting) Qty: 14 RF: 0
[2018-04-12 00:03] VITALS: BP 164/83; PULSE 48; RESP 18; O2SAT 97; BMI 29.1
--- NOTE | 2018-04-12 00:14 | DI.CT.S_ITS ---
PROCEDURE: CT HEAD/BRAIN WO CON INDICATIONS: vomiting, stroke patient, Right sided pain, acting different TECHNIQUE: Noncontrast 4.5 mm thick angled axial sections acquired from the foramen magnum to the vertex, with coronal and sagittal reformats. For radiation dose reduction, the following was used: automated exposure control, adjustment of mA and/or kV according to patient size. COMPARISON: [facility], CT, HEAD WITHOUT CONTRAST, 12/26/2016, 20:08. FINDINGS: Image quality: Excellent. CSF spaces: Basal cisterns are patent. No extra-axial fluid collections. There is ex vacuo dilatation of the left lateral ventricle secondary to adjacent encephalomalacia. Brain: No definite acute intracranial hemorrhage, mass, or mass effect. A large region of encephalomalacia is demonstrated in the left frontal lobe in the middle cerebral artery distribution consistent with a prior infarct. Curvilinear foci of high density within this region likely represent dystrophic calcifications. Elsewhere, the dunham-white matter junction appears grossly preserved. Skull and face: Calvarium and visualized facial bones are intact, without suspicious lesions. Sinuses: Visualized sinuses and mastoids are clear. IMPRESSION: 1. No definite acute intracranial abnormality. 2. Large region of encephalomalacia in the left middle cerebral artery distribution consistent with prior infarct. Associated curvilinear foci of high density likely represent dystrophic calcifications. Dictated by: David Metcalf M.D. on 04/12/2018 at 7:54 Approved by: David Metcalf M.D. on 04/12/2018 at 7:58
[2018-04-12 00:20] LABS: Add Manual Diff / Slide Review NO; Basophils Percent Auto 0.3 % (0-2); Eosinophils Percent Auto 0.1 % (2-4); Hematocrit 32.4 % (36-46); Lymphocytes Percent Auto 8.1 % (25-40); Mean Corpuscular Hemoglobin 32.2 PG (26-34); Mean Corpuscular Volume 94.8 fL (80-100); Monocytes Percent Auto 8.7 % (3-14); Neutrophils Absolute Auto 5700 /uL (3000-5900); Neutrophils Percent Auto 82.8 % (50-75); Platelet Count 284 X10^3/uL (150-400); Red Blood Cell Count 3.42 X10^6/uL (4.0-5.2); Red Cell Distribution Width 13.4 % (11.6-14.8); White Blood Cell Count 6.9 X10^3/uL (4.5-11.0)
[2018-04-12 00:25] LABS: INR 2.9 (0.9-1.3); Prothrombin Time 32.2 SECONDS (10.1-12.7)
--- NOTE | 2018-04-12 00:36 | PC.NURSE ---
patient with a history of CVA with deficits on the right side is brought in by who reports that today she has been complaining of right sided pain. when ask where patient has pain she takes her left hand and draws an imaginary line from her head to her feet and points to the right side. 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 reports that she is at her baseline besides the decrease in appetite. patient can answer yes and no to questions. provider aware.
[2018-04-12 01:00] VITALS: BP 179/85; PULSE 49; RESP 24
[2018-04-12 01:02] VITALS: BP 179/85; PULSE 51; RESP 20; O2SAT 100
[2018-04-12 01:10] LABS: BUN Creatinine Ratio 15.6 (6-22); Blood Urea Nitrogen 14 mg/dL (7-17); Calcium 9.4 mg/dL (8.4-10.2); Carbon Dioxide 27 mmol/L (22-32); Chloride 102 mmol/L (98-107); Estimated Glomerular Filt Rate > 60.0 mL/min (>60); Glucose 130 mg/dL (80-110); HEMOLYSIS < 15 (0-50); Potassium 4.4 mmol/L (3.4-5.1); Sodium 140 mmol/L (137-145)
[2018-04-12 01:30] VITALS: BP 175/83; PULSE 47; O2SAT 98
[2018-04-12] MEDS: HYDROMORPHONE 1 MG INJ IV (01:35)
--- NOTE | 2018-04-12 01:41 | DI.RAD.S_ITS ---
PROCEDURE: XR ACUTE ABDOMEN SERIES INDICATIONS: Abdominal pain TECHNIQUE: One view chest and two views of the abdomen were acquired. COMPARISON: [facility], , CHEST 1 VIEW, 12/26/2016, 20:14. FINDINGS: Surgical changes and devices: None. Chest: Lungs are clear save for scattered atelectasis. Heart size is normal. No pleural effusions. No pneumoperitoneum. Abdomen: Bowel gas pattern is normal. No suspicious calcifications. Visualized solid organ contours appear normal. Bones: No suspicious bony lesions. Discogenic change in bilateral hip joint degeneration. IMPRESSION: No evidence of bowel obstruction or free air. Dictated by: Larry Garcia M.D. on 04/12/2018 at 8:10 Approved by: Larry Garcia M.D. on 04/12/2018 at 8:14
[2018-04-12] MEDS: ONDANSETRON 4 MG/2 ML INJ IV (02:15)
[2018-04-12 02:21] VITALS: BP 169/81; PULSE 54; RESP 16; O2SAT 99
[2018-04-12] MEDS: ONDANSETRON 4 MG ODT PREPACK 1 BOTTLE MISC (03:03)
[2018-04-12] MEDS: HYDROCODONE/ACET 5/325 PREPACK 1 BOTTLE MISC (03:03)
[2018-04-12 04:00] VITALS: BP 186/89; PULSE 51; RESP 12; O2SAT 100
== END 2018-04-12 04:00 | disposition home or self-care (01) ==
PROVIDERS: Emergency Provider Emergency Medicine; PCP Family Medicine
DX: R10.9 Unspecified abdominal pain (principal)
CPT/HCPCS: 36591; 70450; 74022; 80048; 81003; 85025; 85610; 96374; 96375; 99283; 99284; J1170; J2405

== ENCOUNTER → 2018-04-19 16:30 | Outpatient (CLI) | payer OTHER, SELFPAY ==
[2018-04-19 17:56] LABS: INR 3.4 (0.9-1.3); Prothrombin Time 37.8 SECONDS (10.1-12.7)
== END ==
PROVIDERS: PCP Family Medicine; Visit Provider Family Medicine
DX: Z86.73 Personal history of transient ischemic attack (TIA), and cerebral infarction without residual deficits (principal)
CPT/HCPCS: 36415; 85610

== ENCOUNTER → 2018-05-24 13:17 | Outpatient (REF) | payer OTHER, SELFPAY ==
[2018-05-24 13:57] LABS: INR 1.8 (0.9-1.3); Prothrombin Time 19.7 SECONDS (10.1-12.7)
== END ==
LOC: LAB 13:17
PROVIDERS: PCP Family Medicine; Visit Provider Nurse Practitioner Family
DX: Z79.01 Long term (current) use of anticoagulants (principal)
CPT/HCPCS: 85610

== ENCOUNTER → 2018-05-31 14:21 | Outpatient (REF) | payer OTHER, SELFPAY ==
[2018-05-31 14:35] LABS: Prothrombin Time 44.2 SECONDS (10.1-12.7)
== END ==
LOC: LAB 14:21
PROVIDERS: PCP Family Medicine; Visit Provider Nurse Practitioner Family
DX: Z79.01 Long term (current) use of anticoagulants (principal)
CPT/HCPCS: 85610

== ENCOUNTER → 2018-10-22 15:30 | Outpatient (REF) | payer OTHER, SELFPAY ==
[2018-10-22 15:50] LABS: INR 2.5 (0.9-1.3); Prothrombin Time 29.6 SECONDS (10.1-12.7)
== END ==
LOC: LAB 15:30
PROVIDERS: PCP Family Medicine; Visit Provider Family Medicine
DX: Z79.01 Long term (current) use of anticoagulants (principal)
CPT/HCPCS: 85610

== ENCOUNTER → 2018-11-22 13:04 | Outpatient (REF) | payer OTHER, SELFPAY ==
[2018-11-22 13:32] LABS: INR 2.7 (0.9-1.3); Prothrombin Time 31.6 SECONDS (10.1-12.7)
== END ==
LOC: LAB 13:04
PROVIDERS: PCP Family Medicine; Visit Provider Family Medicine
DX: Z79.01 Long term (current) use of anticoagulants (principal)
CPT/HCPCS: 85610

== ENCOUNTER → 2018-12-05 14:40 | Outpatient (REF) | payer OTHER, SELFPAY ==
[2018-12-05 14:51] LABS: Prothrombin Time 35.5 SECONDS (10.1-12.7)
== END ==
LOC: LAB 14:40
PROVIDERS: PCP Family Medicine; Visit Provider Family Medicine
DX: Z79.01 Long term (current) use of anticoagulants (principal)
CPT/HCPCS: 85610

== ENCOUNTER → 2019-01-08 15:22 | Outpatient (ROUT) | payer OTHER, SELFPAY ==
[2019-01-08 15:34] LABS: INR 2.9 (0.9-1.3); Prothrombin Time 33.9 SECONDS (10.1-12.7)
== END ==
PROVIDERS: PCP Family Medicine; Visit Provider Family Medicine
DX: Z79.01 Long term (current) use of anticoagulants (principal)
CPT/HCPCS: 85610

== ENCOUNTER → 2019-02-05 14:54 | Outpatient (ROUT) | payer OTHER, SELFPAY ==
[2019-02-05 15:35] LABS: INR 2.6 (0.9-1.3); Prothrombin Time 30.8 SECONDS (10.1-12.7)
== END ==
PROVIDERS: PCP Family Medicine; Visit Provider Family Medicine
DX: Z79.01 Long term (current) use of anticoagulants (principal)
CPT/HCPCS: 85610

== ENCOUNTER → 2019-03-29 12:32 | Day surgery (SDC) | payer OTHER, SELFPAY ==
[2019-03-29 13:29] VITALS: BP 127/73; PULSE 50; RESP 14; TEMP 36.2; O2SAT 97
[2019-03-29] MEDS: SODIUM CHLORIDE 0.9% 1,000 ML 200 ML IV (13:30)
[2019-03-29 14:25] VITALS: BP 144/83; PULSE 48; RESP 20; TEMP 35.8; O2SAT 95
--- NOTE | 2019-03-29 14:47 | SUR.PHASEII ---
Procedure cancelled due to elevated INR. Dr. Viera spoke to pt. VS stable. IV d/c'd. Pt's daughter notified and she assisted patient to dress. Pt c/o inability to straighten her rt arm. Rt arm held at rt angle. Will have Dr. Viera evaluate patient. Juice provided.
--- NOTE | 2019-03-29 15:13 | SUR.PHASEII ---
Dr. Viera evaluated patient and spoke to pt and her daughter. OK for discharge per MD.
--- NOTE | 2019-03-29 15:54 | PM.OP.ENDO ---
Procedure & Clinicians Study performed: Colonoscopy not performed Same procedure as scheduled: No Surgeon: Jenny Viera Procedure Notes Procedure in detail: Preoperative INR 5.4, procedure was abandoned. Warfarin will be held times 48 hours then restarted at the usual dose and INR rechecked in 1 week. Patient to follow up in clinic to discuss next steps. Follow up: weeks (2) Disposition: other (Home)
== END | disposition home or self-care (01) ==
PROVIDERS: Visit Provider Student in an Organized Health Care Education/Training Program
DX: Z12.11 Encounter for screening for malignant neoplasm of colon (principal); Z53.09 Procedure and treatment not carried out because of other contraindication; R79.1 Abnormal coagulation profile; Z79.01 Long term (current) use of anticoagulants

== ENCOUNTER → 2019-04-09 13:50 | Outpatient (ROUT) | payer OTHER, SELFPAY ==
[2019-04-09 14:03] LABS: INR 2.4 (0.9-1.3); Prothrombin Time 28.5 SECONDS (10.1-12.7)
== END ==
PROVIDERS: Visit Provider Student in an Organized Health Care Education/Training Program
DX: Z79.01 Long term (current) use of anticoagulants (principal)
CPT/HCPCS: 85610

== ENCOUNTER → 2019-05-13 14:46 | Outpatient (CLI) | payer OTHER, SELFPAY ==
--- NOTE | 2019-05-13 | DI.MG.S_ITS ---
BILATERAL DIGITAL SCREENING MAMMOGRAM 3D/2D WITH CAD: 05/13/2019 CLINICAL: Routine screening. Family history of breast cancer. Comparison is made to exams dated: 01/29/2018 mammogram, 12/02/2015 mammogram, 04/05/2013 mammogram, and 07/22/2014 mammogram - [facility]. The tissue of both breasts is heterogeneously dense. This may lower the sensitivity of mammography. Current study was also evaluated with a Computer Aided Detection (CAD) system. There is a biopsy clip in the left breast. No significant masses, calcifications, or other findings are seen in either breast. There has been no significant interval change. IMPRESSION: NEGATIVE There is no mammographic evidence of malignancy. A 1 year screening mammogram is recommended. This exam was interpreted at Station ID: [id number]. NOTE: For mammograms, a report in lay terms will be sent to the patient. Approximately 15% of breast malignancies will not be visualized mammographically. In the management of a palpable breast mass, a negative mammogram must not discourage biopsy of a clinically suspicious lesion. Electronically Signed By: Maximino thompson/roseline:05/13/2019 17:21:00 letter sent: Normal Exam ACR BI-RADS Category 1: Negative [id number]
== END ==
PROVIDERS: PCP Student in an Organized Health Care Education/Training Program; Visit Provider Student in an Organized Health Care Education/Training Program
DX: Z12.31 Encounter for screening mammogram for malignant neoplasm of breast (principal); Z80.3 Family history of malignant neoplasm of breast; Z78.0 Asymptomatic menopausal state; Z82.62 Family history of osteoporosis
CPT/HCPCS: 77063; 77067; 77080

== ENCOUNTER → 2019-06-04 13:59 | Outpatient (CLI) | payer OTHER, SELFPAY ==
[2019-06-04 14:59] LABS: Prothrombin Time 23.8 SECONDS (10.1-12.7)
== END ==
PROVIDERS: PCP Student in an Organized Health Care Education/Training Program; Visit Provider Student in an Organized Health Care Education/Training Program
DX: Z79.01 Long term (current) use of anticoagulants (principal); Z86.73 Personal history of transient ischemic attack (TIA), and cerebral infarction without residual deficits
CPT/HCPCS: 36415; 85610

== ENCOUNTER 2019-06-07 13:32 | Day surgery (SDC) | payer OTHER, SELFPAY ==
--- NOTE | 2019-06-07 | PATH_ITS ---
[facility] Accession Number: [id number] . 01 Material submitted: . colon - ASCENDING COLON POLYP, 3MM . 01 Clinical history: . ENCOUNTER FOR SCREENING FOR MALIGNANT NEOPLASM . 02 Diagnosis: Ascending Colon, Polyp 3 mm, Biopsy: Tubular adenoma. MRV 06/10/2019 1053 Local . 02 Electronically signed: . Lis Reynaga MD, Pathologist NPI- [id number] . 01 Gross description: . ASCENDING COLON POLYP, 3MM: Received in formalin are 2 fragment(s) of bee, soft tissue measuring 0.1 x 0.1 x 0.1 cm to 0.2 x 0.2 x 0.2 cm submitted entirely in 1 cassette(s) /[facility] 06/07/2019 2202 Local . 02 Pathologist provided ICD-10: D12.2 . 02 CPT . 390781 Performed at: 01 [facility] [address], [place], [place] [id number] MD David Pederson MD Phone: [phone] Performed at: 02 [facility] [address] [place], [place] [id number] MD Lis Reynaga MD Phone: [phone]
--- NOTE | 2019-06-07 07:47 | PM.HP.1 ---
History of Present Illness History of Present Illness Date Patient Seen: 06/07/19 Time Patient Seen: 14:02 Chief complaint: [id number] Narrative: 63 Years Old Female comes in today for her colonoscopy. She was unable to complete her last colonoscopy secondary to an elevated INR on day of procedure, 5.4. 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 [id number] score = 4; high risk for thrombolic events. Shared decision prior to her procedure, was to continue warfarin secondary to her risk for thromboembolic events and relatively low risk of the procedure as her last colonoscopy in 2013 was normal. Plan was to have patient return for colonoscopy with anticoagulation bridging if polyps greater than 1 cm were found. Since patient's INR was not less than 2.5 on day of procedure, she was rescheduled to today. INR 4 days ago was 2.0. She stopped warfarin on that day and started bridging lovenox 40 mg SC BID 3 days ago. 24 hours ago, she stopped lovenox. Her INR today is 1.2. She has had 2 lifetime colonoscopies; approximately 2006 where 2 polyps were found, pathology unknown, and again in 2012, normal. Maternal aunt had colon cancer, diagnosed in her 60s. There have been no lower GI symptoms suggesting disease such as change in bowel habits, bleeding, abdominal pain or anemia. Overall health issues have been stable, including no major cardiac events for at least 6 weeks. 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 Expressive aphasia ANTICOAGULATION THERAPY - INR TARGET:2-3 HYPERLIPIDEMIA HYPERTENSION Thickened endometrium ARTHRITIS Obesity (BMI 30.0-34.9) VITAMIN D DEFICIENCY DEPRESSION, MAJOR, RECURRENT, MODERATE Anxiety Past surgical history: Pulmonary embolus (1990) Leg fracture (1992) Left ankle ORIF (1994) Right TKR (2011) Colonoscopy, 2006 (2 polyps) 2012 (normal) Family History: Father: age 62 - Male breast cancer, Hypertension, Hyperlipidemia Mother: age 84 - Osteoporosis, Ovarian cancer Siblings: Hypertension, Hyperlipidemia MGM: 75, Natural causes MGF: 50's, CAD PGM: 95, Natural causes PGF: 50's, coronary artery disease Maternal aunt, colon cancer, diagnosed in her 60s Social History: Reviewed history from 03/29/2018 and no changes required: Marital Status:Significant other Rk Children: Shalini Occupation: Retired Education: BA Brother: Rk Patient History Medical History (Updated 03/29/19 @ 13:06 by Abril Solomon RN) Expressive aphasia (Acute) History of colon polyps (Acute) Right sided weakness (Acute) Surgical History (Updated 03/29/19 @ 13:06 by Abril Solomon RN) History of colonoscopy (Acute) Family & Social History Social History: household members children Tobacco & Substance use: Smoking Status Never smoker alcohol intake frequency 0-2 drinks per day Substance Use Type does not use Meds Home Medications and Allergies Home Medications Medication Instructions Recorded Confirmed Type hydrocodone-acetaminophen 1 tab PO Q4-6H PRN #14 tab 04/12/18 Rx ondansetron [Zofran ODT] 4 mg PO Q6H PRN #14 tab 04/12/18 Rx Multivitamin 50 Plus 1 tab PO DAILY 03/29/19 03/29/19 History atorvastatin 40 mg PO BEDTIME 03/29/19 03/29/19 History cholecalciferol (vitamin D3) 2,000 unit PO DAILY 03/29/19 03/29/19 History [Vitamin D3] famotidine 20 mg PO DAILY 03/29/19 03/29/19 History gabapentin 300 mg PO BEDTIME 03/29/19 03/29/19 History hydralazine 25 mg PO BID 03/29/19 03/29/19 History potassium chloride 20 meq PO DAILY 03/29/19 03/29/19 History sertraline 100 mg PO DAILY 03/29/19 03/29/19 History tizanidine 4 mg PO TID 03/29/19 03/29/19 History warfarin 1.25 mg PO SEEINSTR 03/29/19 03/29/19 History Allergies Allergy/AdvReac Type Severity Reaction Status Date / Time bee stings Allergy Mild localized Uncoded 03/29/19 13:10 swelling Review of Systems Review of Systems ROS Unobtainable: All systems reviewed & are unremarkable except as noted in HPI and below Exam Narrative Exam Narrative: General: well developed, well nourished, in no acute distress, Head: Head normocephalic/atraumatic. Eyes: Pupils equal, round, and reactive to light and accomodation. Extraocular muscles intact. Neck: Neck soft and supple, no lymphadenopathy. Lungs: Clear to auscultation bilaterally, no wheezes, rhonchi or rales. Heart: Normal S1 and S2 with regular rate and rhythm, no audible murmurs, rubs or gallops. Abdomen: abdomen soft and non-tender without masses, organomegaly, or abdominal wall hernias, bowel sounds positive. Neurologic: Right-sided paralysis, expressive aphasia. Skin: No concerning lesions. Psych: alert and cooperative; normal mood and affect. Assessment & Plan Assessment & Plan narrative: Problem # 1: History of colon polyps 1. Colonoscopy The nature and character of the procedure as well as anticipated results were discussed. The possibility of not completing the procedure was also discussed. Possible complications including aspiration pneumonia, bleeding, perforation and reaction to medications either for sedation or preparation and missed lesions were discussed. Questions were answered and proceeding to the colonoscopy was elected. Informed consent signed. Problem # 2: Family history of colon polyps Please see #1 Problem # 3: COLON CANCER SCREENING Please see #1 Problem # 4: ANTICOAGULATION THERAPY - INR TARGET:2-3 Lovenox Bridge: 5 days before procedure: get INR lab and stop warfarin. 3 days before procedure: start lovenox 40 mg 2x/day. 24 hours before procedure: stop lovenox. 12 hours after procedure: restart warfarin. 24 hours after procedure: restart lovenox 40 mg 2x/day. 5 days after procedure: check INR and wait for MD instructions. When INR is between 2-3, can discontinue lovenox. Quality VTE Deep Vein Thrombosis/Pulmonary Embolism Present on Admission: No
--- NOTE | 2019-06-07 14:04 | PM.OP.ENDO ---
Operative Date/Time/Diagnoses Date of procedure: 06/07/19 Time of procedure: 14:37 Pre-op diagnosis: 1. History of colon polyps 2. Family history of colon polyps 3. Screening for colon cancer 4. Anticoagulation therapy Post-op diagnosis: other ( Ascending polyp x1, 3 mm, removed with cold biopsy forceps) Procedure & Clinicians Study performed: 1. Colonoscopy Same procedure as scheduled: Yes Indications: 1. History of colon polyps 2. Family history of colon polyps 3. Colon cancer screening 4. Anticoagulation therapy Surgeon: Jenny Viera Procedure Notes SCOAP/Timeout: 14:37 Procedure in detail: ENDOSCOPIST: Jenny Viera MD ANESTHESIOLOGIST: Dr. Rush PROCEDURE: Colonoscopy with biopsy INDICATIONS: 1. History of colon polyps 2. Family history of colon polyps 3. Colon cancer screening 4. Anticoagulation therapy MEDICATION: Levsin 0.125 mg sublingual, incremental doses of Versed and fentanyl until appropriate level sedation achieved. ASA CLASS: 3 CECAL WITHDRAWAL TIME: 24 minutes COMPLICATIONS: None. EXTENT OF PROCEDURE: Cecum. QUALITY OF PREP: Good with portions of liquid stool. PROCEDURE: Prior to insertion of the colonoscope, a digital rectal examination was accomplished with circumferential palpation of the distal rectal mucosa without significant findings being noted. The high-definition pediatric colonoscope was passed into the rectum in the usual fashion and advanced over to the cecum without difficulty. The ileocecal valve, appendiceal stoma, and medial wall all could be inspected and no abnormalities were seen. ASCENDING COLON: J maneuver was produced in the cecum and the proximal folds of the ascending colon were carefully inspected to the hepatic flexure and a 3 mm polyp was visualized and removed with cold biopsy forceps, excellent hemostasis. As the colonoscope was withdrawn, care was taken to expose and inspect the haustral folds and no other abnormalities were seen. HEPATIC FLEXURE: Normal no polyps, diverticula or other abnormalities. TRANSVERSE COLON: Normal no polyps, diverticula or other abnormalities. DESCENDING COLON: Normal no polyps, diverticula or other abnormalities. SIGMOID COLON: Normal no polyps, diverticula or other abnormalities. RECTUM: Normal. J maneuver was produced. There was no significant perianal disease. The J maneuver was broken. The remainder of the rectum was inspected and there was no external hemorrhoid disease. The scope was withdrawn. IMPRESSION: 1. Ascending polyp x1, 3 mm, removed with cold biopsy forceps PLAN: 1. Follow-up in clinic status post pathology results. The possibility of a missed lesion including a malignancy has been discussed with the patient previously. Potential alarm symptoms have been discussed and should be reported immediately. Scope withdrawal time: 24 minutes Sedation minutes: 48 Findings: polyp Specimen(s): other (Ascending) Complications: none Impression: As above. Post-procedure Recommendations: Will call with biopsy results Follow up: weeks (2) Disposition: PACU
[2019-06-07 14:08] VITALS: BP 128/84; PULSE 58; RESP 16; TEMP 36.6; O2SAT 96; BMI 28.3
[2019-06-07] MEDS: SODIUM CHLORIDE 0.9% 1,000 ML 200 ML IV (14:25)
[2019-06-07] MEDS: HYOSCYAMINE 0.125 MG TABLET PO (14:28)
[2019-06-07 15:30] VITALS: BP 134/87; PULSE 57; RESP 14; TEMP 35.9; O2SAT 97
[2019-06-07 15:35] VITALS: BP 141/92; PULSE 58; RESP 16; O2SAT 97
[2019-06-07 15:40] VITALS: BP 131/73; PULSE 55; RESP 14; O2SAT 99
[2019-06-07 15:47] VITALS: BP 141/87; PULSE 48; RESP 12; TEMP 36.3; O2SAT 100
[2019-06-07 15:55] VITALS: BP 144/87; PULSE 55; RESP 17; TEMP 36.3; O2SAT 97
--- NOTE | 2019-06-07 16:29 | SUR.PHASEII ---
VSS, IV removed. 2PA for dressing r/t hxo stroke with right sided weakness. Pt escorted to main entrance by cr to vehicle.
== END 2019-06-07 16:27 | disposition home or self-care (01) ==
PROVIDERS: PCP Student in an Organized Health Care Education/Training Program; Visit Provider Student in an Organized Health Care Education/Training Program
PROC: 0DJD8ZZ Inspection of Lower Intestinal Tract, Via Natural or Artificial Opening Endoscopic (ICD-10-PCS; CPT 45378; principal; 2019-06-07 15:00)
DX: Z86.010 Personal history of colon polyps (principal); Z79.01 Long term (current) use of anticoagulants; D12.2 Benign neoplasm of ascending colon
CPT/HCPCS: 45380; J0360; J2704

== ENCOUNTER → 2019-07-18 15:41 | Outpatient (ROUT) | payer SELFPAY ==
[2019-07-18 16:52] LABS: INR 2.3 (0.9-1.3); Prothrombin Time 26.9 SECONDS (10.1-12.7)
== END ==
PROVIDERS: PCP Student in an Organized Health Care Education/Training Program; Visit Provider Student in an Organized Health Care Education/Training Program
DX: I69.361 Other paralytic syndrome following cerebral infarction affecting right dominant side (principal); R47.01 Aphasia
CPT/HCPCS: 85610

== ENCOUNTER → 2019-09-19 14:03 | Outpatient (ROUT) | payer SELFPAY ==
[2019-09-19 14:11] LABS: INR 1.5 (0.9-1.3); Prothrombin Time 16.7 SECONDS (10.1-12.7)
== END ==
PROVIDERS: PCP Student in an Organized Health Care Education/Training Program; Visit Provider Student in an Organized Health Care Education/Training Program
DX: R47.01 Aphasia (principal)
CPT/HCPCS: 85610

== ENCOUNTER → 2019-10-10 12:34 | Outpatient (ROUT) | payer SELFPAY ==
[2019-10-10 12:59] LABS: INR 2.4 (0.9-1.3); Prothrombin Time 27.8 SECONDS (10.1-12.7)
== END ==
PROVIDERS: PCP Student in an Organized Health Care Education/Training Program; Visit Provider Student in an Organized Health Care Education/Training Program
DX: Z79.01 Long term (current) use of anticoagulants (principal)
CPT/HCPCS: 85610

== ENCOUNTER → 2019-12-25 13:19 | Outpatient (ROUT) | payer MEDICARE, SELFPAY ==
[2019-12-25 13:30] LABS: INR 2.9 (0.9-1.3); Prothrombin Time 32.4 SECONDS (10.1-12.7)
== END ==
PROVIDERS: PCP Student in an Organized Health Care Education/Training Program; Visit Provider Student in an Organized Health Care Education/Training Program
DX: Z79.01 Long term (current) use of anticoagulants (principal)
CPT/HCPCS: 85610

== ENCOUNTER → 2020-02-19 13:37 | Outpatient (ROUT) | payer MEDICARE, SELFPAY ==
[2020-02-19 13:44] LABS: INR 4.2 (0.9-1.3); Prothrombin Time 47.3 SECONDS (10.1-12.7)
== END ==
PROVIDERS: PCP Student in an Organized Health Care Education/Training Program; Visit Provider Student in an Organized Health Care Education/Training Program
DX: Z86.73 Personal history of transient ischemic attack (TIA), and cerebral infarction without residual deficits (principal); Z79.01 Long term (current) use of anticoagulants; I69.361 Other paralytic syndrome following cerebral infarction affecting right dominant side; R47.01 Aphasia
CPT/HCPCS: 85610

== ENCOUNTER → 2020-02-21 13:28 | Outpatient (ROUT) | payer MEDICARE, SELFPAY ==
[2020-02-21 14:24] LABS: Prothrombin Time 34.5 SECONDS (10.1-12.7)
== END ==
PROVIDERS: PCP Student in an Organized Health Care Education/Training Program; Visit Provider Student in an Organized Health Care Education/Training Program
DX: Z79.01 Long term (current) use of anticoagulants (principal); R47.01 Aphasia; I69.361 Other paralytic syndrome following cerebral infarction affecting right dominant side
CPT/HCPCS: 85610

== ENCOUNTER → 2020-03-30 15:25 | Outpatient (ROUT) | payer MEDICARE, SELFPAY ==
[2020-03-30 15:43] LABS: INR 1.5 (0.9-1.3); Prothrombin Time 16.7 SECONDS (10.1-12.7)
== END ==
PROVIDERS: PCP Student in an Organized Health Care Education/Training Program; Visit Provider Student in an Organized Health Care Education/Training Program
DX: R47.01 Aphasia (principal); I69.361 Other paralytic syndrome following cerebral infarction affecting right dominant side
CPT/HCPCS: 85610

== ENCOUNTER → 2020-05-19 14:28 | Outpatient (ROUT) | payer MEDICARE, SELFPAY ==
[2020-05-19 15:03] LABS: INR 2.8 (0.9-1.3)
== END ==
PROVIDERS: PCP Student in an Organized Health Care Education/Training Program; Visit Provider Student in an Organized Health Care Education/Training Program
DX: R47.01 Aphasia (principal)
CPT/HCPCS: 85610

== ENCOUNTER → 2020-06-26 14:15 | Outpatient (ROUT) | payer MEDICARE, SELFPAY ==
[2020-06-26 14:36] LABS: INR 2.9 (0.9-1.3); Prothrombin Time 33.1 SECONDS (10.1-12.7)
== END ==
PROVIDERS: PCP Student in an Organized Health Care Education/Training Program; Visit Provider Student in an Organized Health Care Education/Training Program
DX: Z79.01 Long term (current) use of anticoagulants (principal); I69.361 Other paralytic syndrome following cerebral infarction affecting right dominant side; Z86.73 Personal history of transient ischemic attack (TIA), and cerebral infarction without residual deficits
CPT/HCPCS: 85610

== ENCOUNTER → 2020-07-31 13:43 | Outpatient (ROUT) | payer MEDICARE, OTHER, SELFPAY ==
[2020-07-31 13:55] LABS: INR 2.2 (0.9-1.3); Prothrombin Time 24.7 SECONDS (10.1-12.7)
== END ==
PROVIDERS: PCP Student in an Organized Health Care Education/Training Program; Visit Provider Student in an Organized Health Care Education/Training Program
DX: I69.361 Other paralytic syndrome following cerebral infarction affecting right dominant side (principal); Z86.73 Personal history of transient ischemic attack (TIA), and cerebral infarction without residual deficits
CPT/HCPCS: 85610

== ENCOUNTER → 2020-09-18 10:26 | Outpatient (ROUT) | payer MEDICARE, OTHER, SELFPAY ==
[2020-09-18 10:35] LABS: INR 3.8 (0.9-1.3); Prothrombin Time 43.1 SECONDS (10.1-12.7)
== END ==
PROVIDERS: PCP Student in an Organized Health Care Education/Training Program; Visit Provider Student in an Organized Health Care Education/Training Program
DX: Z86.73 Personal history of transient ischemic attack (TIA), and cerebral infarction without residual deficits (principal)
CPT/HCPCS: 85610

== ENCOUNTER → 2020-10-01 14:49 | Outpatient (ROUT) | payer MEDICARE, OTHER, SELFPAY ==
[2020-10-01 15:16] LABS: INR 2.9 (0.9-1.3); Prothrombin Time 33.4 SECONDS (10.1-12.7)
== END ==
PROVIDERS: PCP Student in an Organized Health Care Education/Training Program; Visit Provider Student in an Organized Health Care Education/Training Program
DX: Z79.01 Long term (current) use of anticoagulants (principal)
CPT/HCPCS: 85610

== ENCOUNTER → 2020-11-10 15:59 | Outpatient (ROUT) | payer MEDICARE, OTHER, SELFPAY ==
[2020-11-10 17:07] LABS: INR 1.9 (0.9-1.3); Prothrombin Time 21.5 SECONDS (10.1-12.7)
== END ==
PROVIDERS: PCP Student in an Organized Health Care Education/Training Program; Visit Provider Student in an Organized Health Care Education/Training Program
DX: Z79.01 Long term (current) use of anticoagulants (principal)
CPT/HCPCS: 85610

== ENCOUNTER → 2020-11-19 15:53 | Outpatient (ROUT) | payer MEDICARE, OTHER, SELFPAY ==
[2020-11-19 16:03] LABS: INR 1.4 (0.9-1.3); Prothrombin Time 16.5 SECONDS (10.1-12.7)
== END ==
PROVIDERS: PCP Student in an Organized Health Care Education/Training Program; Visit Provider Student in an Organized Health Care Education/Training Program
DX: Z79.01 Long term (current) use of anticoagulants (principal)
CPT/HCPCS: 85610

== ENCOUNTER → 2020-11-26 13:42 | Outpatient (ROUT) | payer MEDICARE, OTHER, SELFPAY ==
[2020-11-26 14:14] LABS: INR 2.6 (0.9-1.3); Prothrombin Time 29.4 SECONDS (10.1-12.7)
== END ==
PROVIDERS: PCP Student in an Organized Health Care Education/Training Program; Visit Provider Student in an Organized Health Care Education/Training Program
DX: Z79.01 Long term (current) use of anticoagulants (principal)
CPT/HCPCS: 85610

== ENCOUNTER → 2021-02-19 16:00 | Outpatient (ROUT) | payer MEDICARE, OTHER, SELFPAY ==
[2021-02-19 16:33] LABS: Prothrombin Time 105.8 SECONDS (10.1-12.7)
[2021-02-19 16:43] LABS: INR 8.8 (0.9-1.3)
== END ==
PROVIDERS: PCP Student in an Organized Health Care Education/Training Program; Visit Provider Student in an Organized Health Care Education/Training Program
DX: Z79.01 Long term (current) use of anticoagulants (principal)
CPT/HCPCS: 85610

== ENCOUNTER → 2021-03-03 15:32 | Outpatient (ROUT) | payer MEDICARE, OTHER, SELFPAY ==
[2021-03-03 15:46] LABS: INR 1.5 (0.9-1.3); Prothrombin Time 16.6 SECONDS (10.1-12.7)
== END ==
PROVIDERS: PCP Student in an Organized Health Care Education/Training Program; Visit Provider Student in an Organized Health Care Education/Training Program
DX: Z79.01 Long term (current) use of anticoagulants (principal)
CPT/HCPCS: 85610

== ENCOUNTER → 2021-03-18 14:58 | Outpatient (ROUT) | payer MEDICARE, OTHER, SELFPAY ==
[2021-03-18 15:05] LABS: INR 3.3 (0.9-1.3); Prothrombin Time 38.8 SECONDS (10.1-12.7)
== END ==
PROVIDERS: PCP Student in an Organized Health Care Education/Training Program; Visit Provider Student in an Organized Health Care Education/Training Program
DX: Z79.01 Long term (current) use of anticoagulants (principal)
CPT/HCPCS: 85610

== ENCOUNTER → 2021-04-23 15:35 | Outpatient (ROUT) | payer MEDICARE, OTHER, SELFPAY ==
[2021-04-23 15:47] LABS: INR 1.6 (0.9-1.3); Prothrombin Time 18.1 SECONDS (10.1-12.7)
== END ==
PROVIDERS: PCP Student in an Organized Health Care Education/Training Program; Visit Provider Student in an Organized Health Care Education/Training Program
DX: Z79.01 Long term (current) use of anticoagulants (principal)
CPT/HCPCS: 85610

== ENCOUNTER → 2021-06-14 18:09 | Outpatient (ROUT) | payer MEDICARE, OTHER, SELFPAY ==
[2021-06-14 18:15] LABS: INR 3.7 (0.9-1.3); Prothrombin Time 43.5 SECONDS (10.1-12.7)
== END ==
PROVIDERS: PCP Student in an Organized Health Care Education/Training Program; Visit Provider Student in an Organized Health Care Education/Training Program
DX: Z79.01 Long term (current) use of anticoagulants (principal)
CPT/HCPCS: 85610

== ENCOUNTER → 2022-03-03 15:30 | Outpatient (ROUT) | payer MEDICARE, OTHER, SELFPAY ==
[2022-03-03 15:49] LABS: Prothrombin Time 34.5 SECONDS (10.1-12.7)
== END ==
PROVIDERS: PCP Student in an Organized Health Care Education/Training Program; Visit Provider Internal Medicine
DX: Z79.01 Long term (current) use of anticoagulants (principal); Z86.73 Personal history of transient ischemic attack (TIA), and cerebral infarction without residual deficits
CPT/HCPCS: 85610

== ENCOUNTER → 2022-04-14 17:37 | Outpatient (ROUT) | payer MEDICARE, OTHER, SELFPAY ==
[2022-04-14 18:08] LABS: Prothrombin Time 84.5 SECONDS (10.1-12.7)
[2022-04-14 18:20] LABS: INR 7.2 (0.9-1.3)
== END ==
PROVIDERS: PCP Student in an Organized Health Care Education/Training Program; Visit Provider Internal Medicine
DX: Z79.01 Long term (current) use of anticoagulants (principal)
CPT/HCPCS: 85610

== ENCOUNTER → 2022-04-19 15:17 | Outpatient (ROUT) | payer MEDICARE, OTHER, SELFPAY ==
[2022-04-19 15:56] LABS: INR 2.4 (0.9-1.3); Prothrombin Time 27.7 SECONDS (10.1-12.7)
== END ==
PROVIDERS: PCP Student in an Organized Health Care Education/Training Program; Visit Provider Internal Medicine
DX: Z79.01 Long term (current) use of anticoagulants (principal)
CPT/HCPCS: 85610

== ENCOUNTER → 2022-05-09 16:40 | Outpatient (ROUT) | payer MEDICARE, OTHER, SELFPAY ==
[2022-05-09 16:57] LABS: INR 2.4 (0.9-1.3); Prothrombin Time 27.9 SECONDS (10.1-12.7)
== END ==
PROVIDERS: PCP Student in an Organized Health Care Education/Training Program; Visit Provider Internal Medicine
DX: Z79.01 Long term (current) use of anticoagulants (principal)
CPT/HCPCS: 85610

== ENCOUNTER → 2022-07-01 16:54 | Outpatient (ROUT) | payer MEDICARE, OTHER, SELFPAY ==
[2022-07-01 17:00] LABS: INR 4.2 (0.9-1.3); Prothrombin Time 48.7 SECONDS (10.1-12.7)
== END ==
PROVIDERS: PCP Student in an Organized Health Care Education/Training Program; Visit Provider Internal Medicine
DX: Z79.01 Long term (current) use of anticoagulants (principal)
CPT/HCPCS: 85610

== ENCOUNTER → 2022-08-12 13:57 | Outpatient (ROUT) | payer MEDICARE, OTHER, SELFPAY ==
[2022-08-12 14:06] LABS: INR 2.4 (0.9-1.3); Prothrombin Time 27.8 SECONDS (10.1-12.7)
== END ==
PROVIDERS: PCP Student in an Organized Health Care Education/Training Program; Visit Provider Internal Medicine
DX: Z79.01 Long term (current) use of anticoagulants (principal)
CPT/HCPCS: 85610

== ENCOUNTER → 2022-08-30 15:20 | Outpatient (CLI) | payer MEDICARE, OTHER, SELFPAY ==
[2022-08-30 17:02] LABS: Alanine Aminotransferase 17 IU/L (<35); Alkaline Phosphatase 109 U/L (38-126); Aspartate Aminotransferase 20 IU/L (14-36); BUN Creatinine Ratio 14.6 (6-22); Bilirubin Total 0.5 mg/dL (0.2-1.3); Blood Urea Nitrogen 13 mg/dL (7-17); Calcium 9.3 mg/dL (8.4-10.2); Carbon Dioxide 24 mmol/L (22-32); Chloride 104 mmol/L (98-107); Cholesterol 153 mg/dL (140-199); Estimated Glomerular Filt Rate > 60 mL/min (>60); Glucose 100 mg/dL (80-110); HDL Cholesterol 53 mg/dL (40-60); HEMOLYSIS < 15 (0-50); LDL Cholesterol Calculated 73 mg/dL (<100); Sodium 138 mmol/L (137-145); Total Protein 7.3 g/dL (6.3-8.2); Triglycerides 133 mg/dL (35-150)
[2022-08-30 17:07] LABS: Hemoglobin A1C% w Est Avg Glu 5.2 % (4.0-6.0)
[2022-08-30 17:15] LABS: Prothrombin Time 98.1 SECONDS (10.1-12.7)
[2022-08-30 17:20] LABS: INR 8.4 (0.9-1.3)
[2022-09-02 16:12] LABS: Albumin 3.9 g/dL (3.5-5.0); Albumin Globulin Ratio 1.1 (1.0-2.8); Globulin 3.4 g/dL (1.7-4.1)
== END ==
PROVIDERS: PCP Student in an Organized Health Care Education/Training Program; Referring Provider Family Medicine; Visit Provider Family Medicine
DX: Z79.01 Long term (current) use of anticoagulants (principal); R73.01 Impaired fasting glucose; E78.5 Hyperlipidemia, unspecified; Z86.73 Personal history of transient ischemic attack (TIA), and cerebral infarction without residual deficits; I69.361 Other paralytic syndrome following cerebral infarction affecting right dominant side; I10 Essential (primary) hypertension; E66.9 Obesity, unspecified
CPT/HCPCS: 36415; 80053; 80061; 83036; 85610

== ENCOUNTER → 2022-09-05 16:56 | Outpatient (ROUT) | payer MEDICARE, OTHER, SELFPAY ==
[2022-09-05 17:25] LABS: INR 1.9 (0.9-1.3); Prothrombin Time 21.7 SECONDS (10.1-12.7)
== END ==
PROVIDERS: PCP Student in an Organized Health Care Education/Training Program; Visit Provider Internal Medicine
DX: Z79.01 Long term (current) use of anticoagulants (principal)
CPT/HCPCS: 85610

== ENCOUNTER → 2022-11-11 15:59 | Outpatient (CLI) | payer MEDICARE, OTHER, SELFPAY ==
--- NOTE | 2022-11-11 16:05 | DI.RAD.S_ITS ---
PROCEDURE: XR SHOULDER LT MIN 2V INDICATIONS: LEFT SHOULDER PAIN TECHNIQUE: 3 views of the shoulder were acquired. COMPARISON: None. FINDINGS: Bones: No fractures or dislocations. No suspicious bony lesions. Visualized ribs appear intact. There is moderate to severe AC joint degenerative change present. No significant glenohumeral joint degenerative change is seen. Soft tissues: No suspicious soft tissue calcifications. IMPRESSION: 1. No evidence for acute osseous abnormality involving the left shoulder. 2. Moderate to severe AC joint degenerative change. Dictated by: Kamaljit Mandel M.D. on 11/11/2022 at 16:25 Approved by: Kamaljit Mandel M.D. on 11/11/2022 at 16:26
== END ==
PROVIDERS: PCP Student in an Organized Health Care Education/Training Program; Referring Provider Family Medicine; Visit Provider Family Medicine
DX: M19.012 Primary osteoarthritis, left shoulder (principal); M25.512 Pain in left shoulder
CPT/HCPCS: 73030